=== PATIENT | female | born 2005 | race Caucasian/White ===

== ENCOUNTER 2025-06-03 14:10 | Emergency (ER) | payer BC, SELFPAY ==
[2025-06-03 14:12] VITALS: BP 121/79
--- NOTE | 2025-06-03 15:40 | ED.GENMED ---
History of Present Illness
General
Chief Complaint: Skin Problem
Time Seen by Provider: 06/03/25 15:24
History of Present Illness
History of Present Illness:
20-year-old female presents the emergency department for evaluation of a painful rash to the left side of the neck, shoulder, and left ear. First noticed the rash over the past 24 hours but pain began 3 days ago. She also reports general malaise
and sore throat. 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 No chest pain or shortness of breath. No severe headaches or vision changes.
Review of Systems
Review of Systems
Allergies reviewed?: Yes
All Other Systems: ROS reviewed and negative except as documented in HPI and ROS
Phy Exam
Physical Exam
Physical Exam:
GEN: Well appearing, NAD, WDWN
HEENT: Oral mucosa moist, no scleral icterus
Cardiac: Regular rate
Lung: No respiratory distress, no tachypnea
MSK: No gross deformity or injuries
Skin: Good color, no pallor or jaundice. Clustered patches of vesicles to the left trapezius from the base of the skull extending toward the shoulder both anteriorly and posteriorly, does not cross the midline, involve the left auricle as well with
no tympanic membrane involvement
Neuro: AO x3, moves all extremities freely
Psych: Calm, cooperative
Course
Orders/Labs/Results
Orders:
Orders
06/03/25 15:58
Herpes Simplex Vir Subtype PCR [S] Urgent
Herpes Source: Vesicular Fluid
Varicella-Zoster Virus By PCR [S] Urgent
Source: Vesicle Fluid
Vital Signs
Initial and Last Documented VS:
Initial Vital Signs
Temp Pulse Resp BP Pulse Ox
98.5 F 77 20 121/79 99
06/03/25 14:12 06/03/25 14:12 06/03/25 14:12 06/03/25 14:12 06/03/25 14:12
Last Documented Vital Signs
Temp Pulse Resp BP Pulse Ox
98.5 F 77 20 121/79 99
06/03/25 14:12 06/03/25 14:12 06/03/25 14:12 06/03/25 14:12 06/03/25 15:43
MDM/Problems Addressed
MDM/Problems Addressed:
Vesicle swab will be sent for confirmation as the patient's young age and prior varicella vaccination status makes shingles less likely. She does have lesions to the left auricle however no auditory canal or tympanic membrane lesions concerning for
Yenny Castillo syndrome. Will start antivirals and gabapentin
*Pulse Oximetry
SaO2: 99
Oxygen Mode of Delivery: Room air
Patient hypoxic: no
*Critical Care Note
Total Time (30-74mins, 75-104mins- exclusive of procedures): Not Applicable
ED Attending Note
-
Portions of this chart may have been created with voice recognition software.� Occasional wrong word or��sound alike� substitutions may have occurred due to the inherent limitations of voice recognition software.
Discharge Plan
Departure
Patient Disposition: Home (Routine Discharge)
Date of Disposition: 06/03/25
Time of Disposition: 15:43
Patient with high blood pressure during this ER visit?: No
Discharge Problem:
Herpes zoster
Instructions: Shingles
Prescriptions:
New
valacyclovir 1 gram tablet
1,000 mg PO TID 7 Days Qty: 21 0RF
gabapentin 100 mg capsule
100 - 200 mg PO TID PRN (Reason: pain) Qty: 60 0RF
Stand Alone Forms: Return to Work
Interventions
Interventions:
*Risk Screen - Suicide Last Done: 06/03/25 14:12
*General Assessment Last Done: 06/03/25 14:12
*Neglect/Abuse Screening Last Done: 06/03/25 14:12
*Nursing Disposition Last Done: 06/03/25 16:16
ED-Skin Assessment Last Done: 06/03/25 15:45
Discharge Date and Time
Discharge Date/Time: 06/03/25 16:16
Print Language: GERMAN
== END 2025-06-03 16:16 | disposition home or self-care (01) ==
LOC: EMR 14:10
PROVIDERS: Physician Assistant; EMERGENCY PHYSICIAN Emergency Medicine; FAMILY PHYSICIAN Family Medicine
DX: B02.9 Zoster without complications (principal); R53.81 Other malaise; J02.9 Acute pharyngitis, unspecified; Z20.89 Contact with and (suspected) exposure to other communicable diseases; Z91.018 Allergy to other foods
CPT/HCPCS: 99283; 87529; 87798